=== PATIENT | female | born 1985 | race Caucasian/White ===

== ENCOUNTER 2020-09-03 10:38 | Emergency (ER) | payer MEDICAID ==
[~2020-09-03] VITALS: Ht 167.6 cm; Wt 75.0 kg
[~2020-09-03 10:38] MED LIST: ALB0.5UD IH; ONDA8TAB6 PO
[2020-09-03 10:49] VITALS: BP 136/76
== END 2020-09-03 12:38 | disposition left against medical advice (07) ==
LOC: ER 10:39
DX: R10.9 Unspecified abdominal pain (principal); Z53.21 Procedure and treatment not carried out due to patient leaving prior to being seen by health care provider

== ENCOUNTER 2025-05-17 13:07 | Emergency (ER) | payer MEDICAID ==
[~2025-05-17] VITALS: Ht 167.6 cm; Wt 67.8 kg
[2025-05-17 13:25] VITALS: TEMP 97.3
[2025-05-17 13:57] LABS: MEAN PLATELET VOLUME 7.9 FL (7.4-10.4); RED CELL DISTRIBUTION WIDTH 12.8 % (11.5-14.5)
[2025-05-17 14:15] LABS: CREATININE 0.83 MG/DL (0.40-0.90); TOTAL CARBON DIOXIDE 29.5 MMOL/L (24-32); eCRCL 85 ML/MIN; eGFR 77 ML/MIN
--- NOTE | 2025-05-17 15:35 | Physician Documentation ---
History of Present Illness ~ Chief Complaint: Complications Stated Complaint: ABD PAIN Time Seen by MD: 14:36 Primary Medical Doctor: dannielle HART PATIENT IS FOUR PARA 0. PATIENT IS PENDING OB 1ST APPOINTMENT IN ONE WEEK. PRESENTS TO THE EMERGENCY DEPARTMENT WITH COMPLAINT OF LIGHT SPOTTING AND CONCERNS FOR EARLY MISCARRIAGE TO HER TO A PAST HISTORY MANY MISCARRIAGES. REPORTS IT IS SPOTTING NEARLY RESOLVED AND THEN HAD INTERCOURSE AND WHICH THAT WAS A GREATER AMOUNT OF BLOOD WHICH WAS OF CONCERN. PATIENT HAS HAD ULTRASOUND IMAGING ONE WEEK AGO IF FINDINGS WERE INCONCLUSIVE DUE TO EARLY . HCG ONE WEEK AGO WAS IN THE [place]OUS[place]S. SHE IS OTHERWISE HAS BEEN DOING WELL. ADDITIONALLY REPORTS THAT SHE WAS TREATED FOR A URINARY TRACT INFECTION APPROXIMATELY 10 DAYS AGO. Medication Reconciliation Allergies: Coded Allergies: cefaclor (Unverified Allergy, Unknown, 09/03/20) Scheduled Albuterol Sulfate Nebs* (Proventil Nebs*), 2.5 MG IH BID, (Reported) Nitrofurantoin Monohyd/M-Cryst (Macrobid 100 mg Capsule), 1 CAP PO Q12H Ondansetron HCl (Zofran), 8 MG PO Q8H PRN N/V Past Medical History Past Medical History: Asthma, Anxiety Past Surgical History: no surgical history Alcohol Use: Rarely Drug Use: none Lives In: Home Occupation: student Review of Systems All Other Systems at this time: Reviewed and Negative Constitutional: Denies: fever Female Genitalia: Reports: abnormal bleeding, ; Denies: vaginal pain, pelvic pain Physical Exam Physical Exam Vital Signs: RN Vital Signs have been reviewed: Yes, Temperature: 97.3, Source: Temporal, Heart Rate: 92, Respiratory Rate: 18, BP: 114/66, Pulse Oximetry: 99, Weight: 67.800 Oxygen Flow Rate: 0 General Appearance: alert, WD/WN, other (UPSET) EENT: moist mucous membranes Neck: normal inspection Respiratory: no respiratory distress Chest: no accessory muscle use Cardiovascular: normal peripheral pulses Extremities: normal inspection Neurologic: oriented x4 Psychiatric: normal mood/affect Skin: normal color Progress Results/Orders Results/Orders Vital Signs 05/17/25 05/17/25 05/17/25 05/17/25 13:25 16:22 17:45 17:46 Temp 97.3 Pulse 92 65 65 Resp 18 18 16 16 B/P (MAP) 114/66 114/61 (78) 114/61 Pulse Ox 99 98 98 O2 Flow Rate 0 0 Laboratory Tests Test 05/17/25 13:45 05/17/25 15:51 White Blood Count 12.4 H Red Blood Count 4.35 Hemoglobin 13.2 Hematocrit 39.3 Mean Corpuscular Volume 90.3 Mean Corpuscular Hemoglobin 30.3 Mean Corpuscular Hemoglobin Concent 33.6 Red Cell Distribution Width 12.8 Platelet Count 256 Mean Platelet Volume 7.9 Neutrophils (%) (Auto) 76.2 H Lymphocytes (%) (Auto) 14.7 L Monocytes (%) (Auto) 5.4 Eosinophils (%) (Auto) 3.2 Basophils (%) (Auto) 0.5 Neutrophils # (Auto) 9.4 H Lymphocytes # (Auto) 1.8 Monocytes # (Auto) 0.7 Eosinophils # (Auto) 0.4 Basophils # (Auto) 0.1 CBC Comment Sodium Level 137 Potassium Level 4.3 Chloride Level 103 Carbon Dioxide Level 29.5 Anion Gap 5 L Blood Urea Nitrogen 10 Creatinine 0.83 Estimated GFR/1.73 m2 77 BUN/Creatinine Ratio 12.0 Glucose Level 65 L Calcium Level 8.4 L Total Bilirubin 0.5 Aspartate Amino Transf (AST/SGOT) 18 Alanine Aminotransferase (ALT/SGPT) 27 Alkaline Phosphatase 49 Total Protein 7.3 Albumin 3.5 Globulin 3.8 Albumin/Globulin Ratio 0.9 L Lipase 36 HCG Beta Subunit 82617 Chemistry Comments Urine Specimen Description Cln catch midstream Urine Color Yellow Urine Clarity Slightly cloudy Urine pH 8.0 Urine Specific [place] 1.020 Urine Protein 30 H Urine Glucose (UA) Negative Urine Ketones Negative Urine Occult Blood Negative Urine Nitrite Negative Urine Bilirubin Negative Urine Urobilinogen 0.2 Urine Leukocyte Esterase Negative Urine RBC 3-10 Urine WBC 50-100 H Urine Squamous Epithelial Cells Few Urine Transitional Epithelial Cells Few Urine Renal Cells Few Urine Bacteria 1+ Urine Starch Few Urine Culture Indicated Indicated Volume Urine Centrifuged 10 ml Urine HCG, Qualitative Positive Urine Comment Microbiology Date/Time Source Procedure Growth Status 05/17/25 16:49 Urine Clean Catch Midstream Urine Culture - Preliminary Gram Negative See Resulted Medical Decision Making Additional information obtaine: old records, family Findings 39-YEAR-OLD FEMALE WHO PRESENTS TO THE EMERGENCY DEPARTMENT REGARDING 1ST TRIMESTER SPOTTING. REPEATED ULTRASOUND IN THE EMERGENCY DEPARTMENT IS FAVORABLE YET WITH A LOW HEART RATE WHICH NEEDS TO BE FOLLOWED UP WITH THE ECG MONITORING. THERE HAS BEEN INCREASE IN HER HCG WHICH IS REASSURING. SHE HAS S CHEDULED OB FOLLOW UP IN ONE WEEK AND HAS BEEN ENCOURAGED TO SEEK HCG FOLLOW UP WITH THE NEXT 2-3 DAYS. ADDITIONALLY UTI IS NOTED AND ONLY 10 WBCS PRESENTS IN WHICH I WILL DEFER TREATMENT UNTIL THE PRIMARY CARE PHYSICIAN AND EVALUATES THE CULTURE AND SENSITIVITY. PATIENT WILL CONTINUE WITH THE PROGESTERONE AND RETURN NEEDED. SAFELY DISCHARGED IN THE EMERGENCY DEPARTMENT Differential Dx:Considerations: Include: -threatened, Cystitis: Acute, Discomfort of , UTI, Vaginal bleeding Departure Disposition: 01 HOME / SELF CARE / HOMELESS Impression: Primary Impression: First trimester vaginal bleeding Additional Impression: Urinary tract infection with Additional Instructions: Please follow up with your OB and primary care physician for results of management of your ultrasound today. Please begin antibiotic for urinary tract infection as directed. Please return to the emergency department as needed. Referrals: NO PRIMARY CARE PROVIDER (PCP) Prescriptions Nitrofurantoin Monohyd/M-Cryst (Macrobid 100 mg Capsule) 100 Mg Capsule 1 CAP PO Q12H for 7 Days, #14 CAP 0 Refills Prov: TATIANA BARRIOS 05/17/25 Education Educated: Patient Educated regarding: diagnosis, treatment, prognosis, need for follow up Signature Scribe Signature: . Attestation: . TATIANA BARRIOS PAC May 17, 2025 15:35
[2025-05-17 16:22] LABS: URINE HCG POSITIVE (NEG)
[2025-05-17 16:26] LABS: LEUKOCYTE ESTERASE ,URINE NEGATIVE (Neg); NITRITES, URINE NEGATIVE (Neg); OCCULT BLOOD,URINE NEGATIVE (Neg)
[2025-05-17 16:43] LABS: UA COLLECTION TYPE CLN CATCH MIDSTREAM
[2025-05-17 16:45] LABS: RENAL CELLS, URINE FEW /HPF; SQUAMOUS EPITHELIAL CELL,UR FEW /LPF (FEW)
[2025-05-17 16:46] LABS: STARCH,URINE FEW /HPF (NEGATIVE)
[2025-05-17] MEDS ORDERED: NITR100C6 PO (17:40)
[2025-05-17 17:46] VITALS: BP 114/61; PULSE 65; RESP 16; O2SAT 98
--- NOTE | 2025-05-17 17:49 | RADIOLOGY REPORT ---
OB ULTRASOUND <14 WEEKS: HISTORY: 6 WEEKS WITH LOWER ABD PAIN, NAUSEA, AND VOMITING TECHNIQUE: Multiple real-time grayscale sonographic images of the pelvis with duplex Doppler color flow, spectral and M-mode analysis. TRANSDUCERS: Transabdominal and transvaginal COMPARISON: None FINDINGS: The uterus measures 7.4 x 4.6 x 5.0 cm The cervix is not visualized Right ovary measures 2.3 x 1.4 x 1 x 3 cm with normal Doppler color flow. Left ovary measures 2.9 x 2.7 x 2.4 cm with normal Doppler color flow. IUP single fetus at 5 weeks and 5 days average ultrasound age based on mean crown-rump length of 0.36 cm and gestational sac size of 1.14 cm heart rate detected at 80 beats per minute. Yolk sac is present. Amniotic fluid is subjectively within normal limits Daphnei-gestational space: Gestational sac is irregular in appearance. IMPRESSION: IUP single live fetus 5 weeks and 5 days AUA corresponding to an VICKI of 01/09/2026. Irregular appearance to the gestational sac. heart rate is 80 beats per minute. Close clinical and sonographic follow-up advised.
== END 2025-05-17 18:05 | disposition home or self-care (01) ==
LOC: ER 13:08
DX: O46.91 Antepartum hemorrhage, unspecified, first trimester (principal); O23.41 Unspecified infection of urinary tract in pregnancy, first trimester; N39.0 Urinary tract infection, site not specified; F41.9 Anxiety disorder, unspecified; J45.909 Unspecified asthma, uncomplicated; Z87.440 Personal history of urinary (tract) infections; Z88.1 Allergy status to other antibiotic agents; Z79.899 Other long term (current) drug therapy; Z3A.01 Less than 8 weeks gestation of pregnancy
CPT/HCPCS: 36415; 76801; 76817; 76830; 80053; 81001; 81025; 83690; 84702; 85025; 87077; 87088; 87186; 93976; 99284